=== PATIENT | female | born 2000 | race Hispanic/Latino ===

== ENCOUNTER 2025-01-05 11:28 | Emergency (ER) | payer OTHER ==
[~2025-01-05] VITALS: Ht 157.5 cm; Wt 73.1 kg
[2025-01-05] MEDS: METOCLOPRAMIDE HCL 10 MG/2ML VIAL IV ONE (12:44)
[2025-01-05] MEDS: KETOROLAC TROMETHAMINE 30 MG/ML VIAL IV STA (12:44)
[2025-01-05] MEDS: DIPHENHYDRAMINE HCL INJ 50 MG/ML VIAL IV ONE (12:45)
[2025-01-05] MEDS: SODIUM CHLORIDE 0.9% 500ML 500 ML IV ONE (13:23)
[2025-01-05 13:54] VITALS: PULSE 66; RESP 16; TEMP 97.7; O2SAT 97
== END 2025-01-05 13:54 | disposition home or self-care (01) ==
LOC: FSED 11:33
DX: G43.909 Migraine, unspecified, not intractable, without status migrainosus (principal); Z87.442 Personal history of urinary calculi
CPT/HCPCS: 81025; 96374; 96375; 99283; J1200; J1885; J2765; J7040